=== PATIENT | female | born 1975 | race Caucasian/White ===

== ENCOUNTER 2019-11-14 12:09 | Emergency (ER) | payer OTHER ==
[2019-11-14] MEDS ORDERED: Lidocaine 1% (PF) 30 ML VIAL ONE (12:37)
[2019-11-14] MEDS ORDERED: Bacitracin 1 PK ONE (13:03)
== END 2019-11-14 13:10 | disposition home or self-care (01) ==
LOC: NAV ERS 12:09
DX: S61.411A Laceration without foreign body of right hand, initial encounter (principal); S61.212A Laceration without foreign body of right middle finger without damage to nail, initial encounter; I10 Essential (primary) hypertension; F32.9 Major depressive disorder, single episode, unspecified; F17.210 Nicotine dependence, cigarettes, uncomplicated; Z79.899 Other long term (current) drug therapy; W26.8XXA Contact with other sharp object(s), not elsewhere classified, initial encounter
CPT/HCPCS: 12001; J2001

== ENCOUNTER 2022-02-27 21:32 | Emergency (ER) | payer OTHER ==
[2022-02-27] MEDS ORDERED: Tetracaine 0.5% PF 4 ML BOT ONE (21:39)
[2022-02-27] MEDS ORDERED: Fluorescein Opthalmic Strip ONE (21:39)
[2022-02-27] MEDS ORDERED: traMADol HCl 50 MG TAB ONE (21:55)
== END 2022-02-27 22:02 | disposition home or self-care (01) ==
LOC: NAV ERS 21:32
DX: S05.02XA Injury of conjunctiva and corneal abrasion without foreign body, left eye, initial encounter (principal); I10 Essential (primary) hypertension; M06.9 Rheumatoid arthritis, unspecified; F17.210 Nicotine dependence, cigarettes, uncomplicated; Z79.899 Other long term (current) drug therapy; X58.XXXA Exposure to other specified factors, initial encounter
CPT/HCPCS: 99283

== ENCOUNTER 2022-07-18 17:09 | Emergency (ER) | payer OTHER ==
[2022-07-18] MEDS ORDERED: Tetracaine 0.5% PF 4 ML BOT ONE (17:35)
[2022-07-18] MEDS ORDERED: Fluorescein Opthalmic Strip ONE (17:35)
[2022-07-18] MEDS ORDERED: Erythromycin Base 0.5% Oint 1 GM TUBE ONE (18:10)
== END 2022-07-18 18:14 | disposition home or self-care (01) ==
LOC: NAV ERS 17:09
DX: S05.02XA Injury of conjunctiva and corneal abrasion without foreign body, left eye, initial encounter (principal); W22.8XXA Striking against or struck by other objects, initial encounter
CPT/HCPCS: 99283